=== PATIENT | male | born 1990 | race Caucasian/White ===

== ENCOUNTER 2023-07-16 16:54 | Emergency (ER) | payer OTHER ==
[~2023-07-16] VITALS: Ht 167.6 cm; Wt 70.3 kg
[2023-07-16 17:24] VITALS: BP 130/81; PULSE 70; RESP 20; TEMP 99.7; O2SAT 100
[2023-07-16] MEDS ORDERED: ACET-8905 PO (17:51)
[2023-07-16] MEDS ORDERED: IBUP-2213 PO (17:51)
[2023-07-16] MEDS ORDERED: KETOROLAC 60 MG/2 ML VIAL IM ONE (18:00)
[2023-07-16] MEDS ORDERED: PSEU120T22 PO (18:24)
[2023-07-16 18:55] VITALS: BP 130/81; PULSE 70; RESP 20; TEMP 99.7; O2SAT 100
== END 2023-07-16 18:57 | disposition home or self-care (01) ==
LOC: MED 16:54
DX: R51.9 Headache, unspecified (principal); M54.2 Cervicalgia; Z79.899 Other long term (current) drug therapy
CPT/HCPCS: 70450; 96372; 99285; J1885